=== PATIENT | female | born 1950 | race African-American/Black ===

== ENCOUNTER → 2020-05-13 | Outpatient (CLI) | payer OTHER | LOC: LAB 10:10 | PROVIDERS: ATTEND Anesthesiology | DX: Z01.812 Encounter for preprocedural laboratory examination (principal); Z20.828 Contact with and (suspected) exposure to other viral communicable diseases ==

== ENCOUNTER → 2020-07-15 | Outpatient (CLI) | payer OTHER | LOC: LAB 09:45 | PROVIDERS: ATTEND Anesthesiology | DX: Z01.812 Encounter for preprocedural laboratory examination (principal); Z20.828 Contact with and (suspected) exposure to other viral communicable diseases ==